=== PATIENT | male | born 1950 | race Caucasian/White ===

== ENCOUNTER → 2017-06-10 | Outpatient (CLI) | payer MEDICARE ==
[2017-06-10 11:38] LABS: EKG EKG PERFORMED
[2017-06-10 12:28] LABS: Basophils % (A) 1 %; CH 30.9; CHCM 31.2; Eosinophils # (A) 0.2 k/uL (0-0.7); Eosinophils % (A) 5 %; HCT 44.4 % (39.0-53.0); HDW 2.29; HGB 13.7 gm/dL (13.0-17.5); Luc # (Auto) 0.13; Luc % (Auto) 3; Lymphocytes # (A) 0.9 k/uL (1.0-4.8); Lymphocytes % (A) 18 %; MCH 30.7 pg (25.0-35.0); MCHC 30.9 g/dL (31.0-37.0); MCV 99.5 fL (80.0-100.0); Mean Platelet Volume 6.8; Monocytes # (A) 0.3 k/uL (0-1.0); Monocytes % (A) 7 %; Neutrophils # (A) 3.3 k/uL (1.3-7.7); Neutrophils % (A) 68 %; RBC 4.47 m/uL (4.30-5.90); RDW 13.3 % (11.5-15.5); WBC 4.8 k/uL (3.8-10.6); WBC (Perox) 4.98
[2017-06-10 12:33] LABS: Anion Gap 8 mmol/L; Carbon Dioxide 24 mmol/L (22-30); Chloride 108 mmol/L (98-107); Potassium 4.5 mmol/L (3.5-5.1); Sodium 140 mmol/L (137-145)
== END | disposition home or self-care (01) ==
LOC: LABPAT 11:12
PROVIDERS: ATTEND Orthopaedic Surgery
DX: Z01.810 Encounter for preprocedural cardiovascular examination (principal); Z01.812 Encounter for preprocedural laboratory examination; M23.91 Unspecified internal derangement of right knee
CPT/HCPCS: 36415; 80051; 85025; 93005

== ENCOUNTER → 2017-08-12 | Outpatient (CLI) | payer MEDICARE ==
--- NOTE | 2017-08-12 15:37 | CT ---
EXAMINATION TYPE: CT abdomen pelvis wo con DATE OF EXAM: 08/12/2017 COMPARISON: CT 02/11/2013 INDICATION: microscopic hematuria DLP: 982 mGycm, Automated exposure control for dose reduction was used. CONTRAST: 0 mL of Omnipaque 350 due to elevated renal function test at this time Study performed with Oral Contrast TECHNIQUE: Axial images were obtained from above the diaphragm to the pubic rami in the axial plane a t 5 mm thick sections. Reconstructed images are reviewed on the computer in the coronal plane. FINDINGS: Limited CT sections are obtained the lung bases. The lung bases are clear. CT ABDOMEN: Liver: There is a 1.3 cm cyst measuring -4 Hounsfield units in the superior right lobe liver. This wa s present previously. Smaller hypodensities are within the liver likely representing additional cysts present previously but are too small to classify as simple cysts. Spleen: Scattered calcified granuloma are within the spleen. Pancreas: Normal Adrenal glands: The adrenal glands are normal. Gallbladder: Normal Kidneys: No masses are evident. No hydronephrosis is present. No cysts are present. There is a olga lidia cification which appears to be a vascular calcification within the anterior mid renal vein. No renal calcifications are evident. No hydronephrosis or hydroureter is evident. Ureters follow a normal sanjay barbra course and contour to the urinary bladder. Left ureter is slightly more prominent than the right. Recent passage of a renal stone is not excluded. Aorta: Vascular calcification is within the aorta. There is an infrarenal abdominal aortic aneurysm with an AP diameter of 4.0 cm. The aortic aneurysm is tortuous and extends to the iliac bifurcation. Iliac vessels are prominent measuring 1.9 cm on the right and 1.8 cm on the left. This is increased f rom 3.5 cm from the previous examination dated 02/11/2013. Inferior vena cava: Normal. CT PELVIS: There is some limitation due to a left hip prosthesis present. Loops of bowel within the abdomen and pelvis are normal. Multiple diverticuli are within the prox imal sigmoid colon. Descending colon diverticula are present. Appendix: Normal as visualized. Urinary bladder: Normal. Genitourinary structures: Prostate contains calcification. Osseous structures: No suspicious lytic or sclerotic lesions. Degenerative changes are at the bilater al sacroiliac joints. Spondylolysis of L5 is present. Facet hypertrophy is present L4-5. IMPRESSIONS: 1. Infrarenal Abdominal aortic aneurysm through a tortuous aorta. Greatest AP diameter is 4.0 cm. Th is continues into the proximal common iliac vessels. This is slightly increased from 3.5 cm on the pr ior examination. 2. Diverticulosis without acute diverticulitis. 3. No suspicious etiology for hematuria based on the noncontrast CT study.
== END | disposition home or self-care (01) ==
LOC: RADCTMAIN 12:12
PROVIDERS: ATTEND Urology
DX: I71.3 Abdominal aortic aneurysm, ruptured (principal); Q25.46 Tortuous aortic arch; K57.90 Diverticulosis of intestine, part unspecified, without perforation or abscess without bleeding; R31.9 Hematuria, unspecified
CPT/HCPCS: 36415; 74176; 82565; 84520

== ENCOUNTER → 2017-09-10 | Outpatient (CLI) | payer MEDICARE ==
--- NOTE | 2017-09-10 15:15 | US ---
EXAMINATION TYPE: US bladder DATE OF EXAM: 09/10/2017 COMPARISON: NONE CLINICAL HISTORY: R35.0 FREQ OF URINATION. EXAM MEASUREMENTS: full bladder volume: 524.8ml Post Void Residual Volume: 0.95 mL Color Doppler performed to assess ureteral jets. Bilateral Jets seen: Yes Normal Post Void Residual (less than 50ml): Yes IMPRESSION: No distinct abnormality of the urinary bladder
== END | disposition home or self-care (01) ==
LOC: RADUSWWP 14:47
PROVIDERS: ATTEND Family Medicine
DX: R35.0 Frequency of micturition (principal)
CPT/HCPCS: 76857

== ENCOUNTER 2019-09-15 06:57 | Day surgery (SDC) | payer BC, MEDICARE ==
[2019-09-12 14:36] VITALS: BMI 33.0
[~2019-09-15 06:57] MED LIST: LACTATED RINGERS 1,000 ML IV SCH; LIDOCAINE 1% 20 ML VIAL (10MG/ML) FOR IV START INTRADERMA PRN
--- NOTE | 2019-09-15 07:20 | P.GSHP ---
History of Present Illness H&P Date: 09/15/19 CHIEF COMPLAINT: Colon screen HISTORY OF PRESENT ILLNESS: The patient is a 69-year-old male who presents for colon screen. Lower endoscopy was offered for further evaluation and management. PAST MEDICAL HISTORY: Please see list. PAST SURGICAL HISTORY: Please see list. MEDICATIONS: Please see list. ALLERGIES: Please see list. SOCIAL HISTORY: No illicit drug use FAMILY HISTORY: No reports of Crohn disease or ulcerative colitis. REVIEW OF ORGAN SYSTEMS: CONSTITUTIONAL: No reports of fevers or chills. PHYSICAL EXAM: VITAL SIGNS: Stable GENERAL: Well-developed pleasant in no acute distress. HEENT: No scleral icterus. Extraocular movements grossly intact. Moist buccal mucosa. NECK: Supple without lymphadenopathy. CHEST: Unlabored respirations. Equal bilateral excursions. CARDIOVASCULAR: Regular rate and rhythm. Distal 2+ pulses. ABDOMEN: Soft, nontender, nondistended. MUSCULOSKELETAL: No clubbing, cyanosis, or edema. ASSESSMENT: 1. Colon screen. PLAN: 1. Recommend proceeding with a lower endoscopy Past Medical History Past Medical History: Atrial Fibrillation, Osteoarthritis (OA) History of Any Multi-Drug Resistant Organisms: None Reported Past Surgical History: Joint Replacement Additional Past Surgical History / Comment(s): CARDIOVERSION, LEFT HIP replacement, rt knee replacement Past Anesthesia/Blood Transfusion Reactions: No Reported Reaction Smoking Status: Former smoker - Past Family History Mother Family Medical History: No Reported History Father Family Medical History: No Reported History Medications and Allergies Home Medications Medication Instructions Recorded Confirmed Type Warfarin [Coumadin] 5 mg PO SUMOTUFRSA 05/19/16 09/12/19 History Aspirin [Adult Low Dose Aspirin EC] 81 mg PO DAILY 05/21/16 09/15/19 History Losartan/Hydrochlorothiazide 1 tab PO DAILY 09/12/19 09/15/19 History [Losartan-Hctz 100-25 mg Tab] Methylsulfonylmethane [MSM] 900 mg PO DAILY 09/12/19 09/15/19 History Warfarin [Coumadin] 7.5 mg PO WETH 09/12/19 09/12/19 History Allergies Allergy/AdvReac Type Severity Reaction Status Date / Time No Known Allergies Allergy Verified 09/15/19 07:15
[2019-09-15 07:26] VITALS: TEMP 96.7
[2019-09-15] MEDS ORDERED: PROPOFOL 10 MG/ML 20 ML VIAL IV ONE (07:53)
[2019-09-15] MEDS ORDERED: IV FLUID CONTINUATION 1,000 ML IV ONE (08:12)
[2019-09-15 08:29] VITALS: BP 116/70; PULSE 67; RESP 18
--- NOTE | 2019-09-15 08:47 | P.PCN ---
Date of Procedure: 09/15/19 Description of Procedure: PREOPERATIVE DIAGNOSIS: Colonoscopy screening. Personal history of colon polyps Chronic anticoagulant use POSTOPERATIVE DIAGNOSIS: Colonoscopy screening. Personal history of colon polyps Sigmoid diverticulosis, severe Pandiverticulosis Chronic anticoagulant use OPERATION: Colonoscopy to the ileocecal valve and appendiceal orifice. SURGEON: Sarah Tse MD. ANESTHESIA: MAC. INDICATIONS: The patient is a 69-year-old male who presents for colonoscopy screening. Last colonoscopy over 5 years ago. Benefits and risks were described and informed consent was obtained. DESCRIPTION OF PROCEDURE: The patient had undergone Suprep. He had been brought into the operating room and laid in the left lateral decubitus position. After adequate intravenous sedation, the rectum was examined with 2% lidocaine jelly. External hemorrhoids were encountered. The rectal tone was within normal limits. No lesions were palpated in the rectal vault. An Olympus colonoscope was advanced until the ileocecal valve and appendiceal orifice were clearly viewed. The prep was excellent with clear visualization of the mucosal folds. The scope was removed with visualization of each mucosal fold. Scattered diverticulosis was encountered. No colonic polyps were found. No evidence of focal colitis was found. Retroflexion of the scope demonstrated grade 1 internal hemorrhoids without active bleeding or inflammation. The colon was desufflated. The patient had tolerated the procedure well. Withdrawal time was over 6 minutes. FINDINGS: Aronchick preparation quality scale 1 (1-5) Internal hemorrhoids, grade 1 External prolapsed hemorrhoids, grade 2 No arteriovenous malformations. No adenomatous polyps. Moderate to severe sigmoid diverticulosis Pandiverticulosis No focal colitis. RECOMMENDATIONS: Lower endoscopy in 5 years, 2024 or Cologaurd Plan - Discharge Summary Discharge Rx Participant: No New Discharge Prescriptions: Continue Warfarin [Coumadin] 5 mg PO SUMOTUFRSA Aspirin [Adult Low Dose Aspirin EC] 81 mg PO DAILY Warfarin [Coumadin] 7.5 mg PO WETH Losartan/Hydrochlorothiazide [Losartan-Hctz 100-25 mg Tab] 1 tab PO DAILY Methylsulfonylmethane [MSM] 900 mg PO DAILY Discharge Medication List Warfarin [Coumadin] 5 mg PO SUMOTUFRSA 05/19/16 [History] Aspirin [Adult Low Dose Aspirin EC] 81 mg PO DAILY 05/21/16 [History] Losartan/Hydrochlorothiazide [Losartan-Hctz 100-25 mg Tab] 1 tab PO DAILY 09/12/19 [History] Methylsulfonylmethane [MSM] 900 mg PO DAILY 09/12/19 [History] Warfarin [Coumadin] 7.5 mg PO WETH 09/12/19 [History] Follow up Appointment(s)/Referral(s): Sarah Tse MD [STAFF PHYSICIAN] - As Needed Patient Instructions/Handouts: *Surgery [facility] - (Anesthesia) Endoscopy Discharge Instructions, Hemorrhoids (ED), Diverticulosis (DC), Diverticulosis Diet (GEN), Colonoscopy (DC) Activity/Diet/Wound Care/Special Instructions: START COUMADIN TODAY. Repeat colonoscopy 5 years, 2024 or Cologaurd Discharge Disposition: HOME SELF-CARE
== END 2019-09-15 08:52 | disposition home or self-care (01) ==
LOC: ORWHC2ENDO 06:57
PROVIDERS: ATTEND Surgery Plastic and Reconstructive Surgery
DX: Z12.11 Encounter for screening for malignant neoplasm of colon (principal); K57.30 Diverticulosis of large intestine without perforation or abscess without bleeding; K64.1 Second degree hemorrhoids; K64.0 First degree hemorrhoids; Z86.010 Personal history of colon polyps; I48.91 Unspecified atrial fibrillation; M19.90 Unspecified osteoarthritis, unspecified site; Z87.891 Personal history of nicotine dependence; Z96.642 Presence of left artificial hip joint; Z96.651 Presence of right artificial knee joint; Z79.01 Long term (current) use of anticoagulants; Z79.82 Long term (current) use of aspirin; Z79.899 Other long term (current) drug therapy
CPT/HCPCS: J2704; G0105; 45378